=== PATIENT | male | born 2000 | race Caucasian/White ===

== ENCOUNTER 2022-11-01 21:59 | Emergency (ER) | payer OTHER ==
[2022-11-01] MEDS ORDERED: HYDROcodone/Acetaminophen 5/325 mg Tablet ONE (23:21)
== END 2022-11-02 00:02 | disposition home or self-care (01) ==
LOC: CSHERS 21:59
DX: S63.282A Dislocation of proximal interphalangeal joint of right middle finger, initial encounter (principal); X58.XXXA Exposure to other specified factors, initial encounter; Y93.64 Activity, baseball
CPT/HCPCS: 26770